=== PATIENT | female | born 1940 | race Caucasian/White ===

== ENCOUNTER → 2021-05-23 | Outpatient (CLI) | payer MEDICARE, BC ==
--- NOTE | 2021-05-23 16:51 | RAD ---
Right lower extremity venous duplex study 05/23/2021 4:47 PM Clinical History: Reason: PAIN IN RIGHT LEG / Spl. Instructions: / History: Technique: Using a combination of real time ultrasound imaging and color-flow and pulse Doppler imagi ng techniques, including spectral analysis, graded compression and augmentation, duplex evaluation of the deep venous system of the right lower extremity was performed. Multiple images were obtained. Findings: There is no sonographic evidence of deep venous thrombosis involving the visualized deep ve nous structures of the right lower extremity. There is a somewhat complex fluid collection in the s oft tissues of the right calf measuring 11.3 x 6.6 x 3.6 cm. No internal blood flow. Differential con siderations include hematoma, abscess, or other fluid collection. Impression: 1.No evidence of deep venous thrombosis involving the right lower extremity 2. Somewhat complex fluid collection in the right calf consider MRI evaluation as clinically indicate d.. Findings could represent a hematoma, abscess, or other fluid collection. Electronically signed by: Galileo Galeana MD (05/23/2021 4:48 PM) [id number]
== END ==
LOC: US 16:10
PROVIDERS: ATTEND Family Medicine
DX: M79.604 Pain in right leg (principal)
CPT/HCPCS: 93971